=== PATIENT | female | born 1990 | race Caucasian/White ===

== ENCOUNTER 2016-11-20 16:06 | Outpatient (CLI) | payer MEDICAID ==
[~2016-11-20] VITALS: Ht 157.5 cm; Wt 61.0 kg
[2016-11-20 17:26] VITALS: Ht 157.5 cm; Wt 61.0 kg
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
== END 2016-11-20 18:00 | disposition home or self-care (01) ==
LOC: OBT 16:06 → L-D 16:07 → OBT 18:00
PROVIDERS: ATTEND Obstetrics & Gynecology
DX: O26.892 Other specified pregnancy related conditions, second trimester (principal); R10.9 Unspecified abdominal pain; R51 Headache; Z3A.26 26 weeks gestation of pregnancy
CPT/HCPCS: 76815; Z7500; G0463

== ENCOUNTER 2016-12-16 17:14 | Outpatient (CLI) | payer MEDICAID ==
[~2016-12-16] VITALS: Ht 154.9 cm; Wt 62.8 kg
[2016-12-16] MEDS ORDERED: PRENAT PO (17:52)
[2016-12-16 17:53] VITALS: BP 125/74; PULSE 78; Ht 154.9 cm; Wt 62.8 kg
--- NOTE | 2016-12-16 19:28 | RADRPT ---
PROCEDURE: US OB biophysical profile. CLINICAL INDICATION: evaluation TECHNIQUE: Multiple sonographic images of the pelvis were obtained. The images were reviewed on a PACS workstation. COMPARISON: No prior studies are available for comparison. FINDINGS: There is a single viable intrauterine gestation. Cardiac activity is present with 152 beats per min anne marie. There is a vertex presentation. The placenta is posterior. There is no evidence of placental abruption. There is a normal amount of amniotic fluid with an SHLOMO = 18.3 cm. Biophysical profile: movement 2/2 tone 2/2. breathing 2/2 SHLOMO 2/2 Total 02/11 RPTAT: AA . IMPRESSION: Normal biophysical profile. Physician Maximo Date Time Electronically viewed and signed by Physician Maximo on 12/16/2016 19:27 /
--- NOTE | 2016-12-16 21:35 | TRIAGE ---
OB Triage Datetime Report Generated by CPN: 12/16/2016 21:34 Datetime: 12/16/2016 20:30 Stage of : OB Triage Datetime: 12/16/2016 20:00 Stage of : OB Triage Time of Arrival: 12/16/2016 17:05 EGA: 30.1 Arrived By: Wheelchair Arrived From: Home Chief Complaint: SOB Initial Plan: C Datetime: 12/16/2016 19:17 Assessment Type: Admission Assessment Maternal Assessment Level of Consciousness: Fully Conscious DTR's/Clonus: DTRs 2+; No Clonus Headache: Denies Blurred Vision: No Respiratory Effort: Unlabored; Regular Rhythm; Equal Expansion Breath Sounds, Left: Clear and Equal Breath Sounds, Right: Clear and Equal Nausea/Vomiting: Denies RUQ Epigastric Pain: Denies Lower Extremities Edema: None Degree: None Upper Extremities Edema: None Degree: None Facial Edema: None Fall Risk Assessment History of Falling: (0) No Secondary Diagnosis: (0) No Ambulatory Aid: (0) Bedrest/Nurse Assist IV Therapy: (0) No Gait: (0) Normal/Bedrest/Immobile Mental Status: (0) Oriented to Own Ability Fall Score: 0 Fall Risk Score Definition: No Risk: No action required Datetime: 12/16/2016 17:46 Assessment Type: Admission Assessment Maternal Assessment Level of Consciousness: Fully Conscious DTR's/Clonus: DTRs 2+; No Clonus Headache: Denies Blurred Vision: No Respiratory Effort: Unlabored; Regular Rhythm; Equal Expansion Breath Sounds, Left: Clear and Equal Breath Sounds, Right: Clear and Equal Nausea/Vomiting: Denies RUQ Epigastric Pain: Denies Lower Extremities Edema: None Degree: None Upper Extremities Edema: None Degree: None Facial Edema: None Fall Risk Assessment History of Falling: (0) No Secondary Diagnosis: (0) No Ambulatory Aid: (0) Bedrest/Nurse Assist IV Therapy: (0) No Gait: (0) Normal/Bedrest/Immobile Mental Status: (0) Oriented to Own Ability Fall Score: 0 Fall Risk Score Definition: No Risk: No action required Labor Evaluation Frequency: 0 Pattern: Normal: <= 5 Contractions in 10 Minutes Resting Tone [place]: Relaxed Heart Rate FHR Baseline Rate: 130 Monitor Mode: External US Variability: Moderate 6-25 bpm Accelerations: 15X15 Decelerations: None Category: Category I Datetime: 12/16/2016 17:44 Time of Arrival: 12/16/2016 17:05 EGA: 30.1 Arrived By: Ambulatory Arrived From: Home Chief Complaint: SOB Movement: Decreased Contractions: Denies/Absent Rupture of Membranes: Denies Vaginal Bleeding: None Vaginal Discharge: Denies Recent Sexual Intercouse: Denies Abdominal Trauma: Not Applicable Patient Complaints: Other Time Provider Notified: 12/16/2016 17:35 Provider Notified: DR COLUNGA Initial Plan: NST Datetime: 11/20/2016 16:44 Fall Score: 0 Fall Risk Score Definition: No Risk: No action required Datetime: 11/20/2016 16:15 EGA: 26.3
--- NOTE | 2017-01-23 19:11 | PN ---
Triage Information Date/Time 12/16/16 Weeks of Gestation 30 : 3 Para: 2 Assessment/Plan decrease movements KRYSTEN MORENO MD Jan 23, 2017 19:11
== END 2016-12-16 20:00 | disposition home or self-care (01) ==
LOC: OBT 17:14 → L-D 17:15 → OBT 20:00
PROVIDERS: ATTEND Obstetrics & Gynecology
DX: O36.8130 Decreased fetal movements, third trimester, not applicable or unspecified (principal); Z3A.30 30 weeks gestation of pregnancy
CPT/HCPCS: 76818; Z7500; G0463